=== PATIENT | female | born 1995 | race African-American/Black ===

== ENCOUNTER 2017-03-09 17:33 | Emergency (ER) | payer MEDICAID, OTHER ==
[~2017-03-09] VITALS: Ht 162.6 cm; Wt 127.0 kg
[~2017-03-09 17:33] MED LIST: Z.0.NO CURRENT MEDS
[2017-03-09 17:40] VITALS: BP 152/95; PULSE 103; RESP 16; TEMP 98.2; O2SAT 97
--- NOTE | 2017-03-09 17:57 | PD ---
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 She had a period on February 16. She said it only lasted 2 days which is fairly light for her. Since then she's been having some lower abdominal cramps. She has started to urinate a lot. She has some hot flashes at times. She says she has never been . She is not aware of fever or chills. PFS Past Medical History Immunizations Current: Yes ?: Unknown LMP: IRREG Social History Alcohol Use: No Tobacco Use: No Substance Use: No Allergies-Medications (Allergen,Severity, Reaction): Coded Allergies: No Known Allergies (Verified , 03/09/17) Reported Meds & Prescriptions Reported Meds & Active Scripts Active No Active Prescriptions or Reported Medications Review of Systems General / Constitutional: No: Fever, Chills Eyes: No: Diploplia HENT: Positive: Headaches, No: Vertigo Cardiovascular: No: Chest Pain or Discomfort, Palpitations Respiratory: No: Cough Gastrointestinal: No: Nausea Genitourinary: Positive: Dysuria, Pelvic Pain Musculoskeletal: No: Myalgias, Arthralgias Skin: No Rash Neurologic: No: Weakness Hematologic/Lymphatic: No: Easy Bruising Physical Exam Narrative GENERAL: Well-developed female SKIN: Focused skin assessment warm/dry. HEAD: Atraumatic. Normocephalic. EYES: Pupils equal and round. No scleral icterus. No injection or drainage. ENT: No nasal bleeding or discharge. Mucous membranes pink and moist. NECK: Trachea midline. No JVD. CARDIOVASCULAR: Regular rate and rhythm. No murmur appreciated. RESPIRATORY: No accessory muscle use. Clear to auscultation. Breath sounds equal bilaterally. Pelvic: There is a moderate amount of white discharge. There is pain with movement of the cervix. No masses are felt GASTROINTESTINAL: Abdomen soft, non-tender, nondistended. Hepatic and splenic margins not palpable. MUSCULOSKELETAL: No obvious deformities. No clubbing. No cyanosis. No edema. NEUROLOGICAL: Awake and alert. No obvious cranial nerve deficits. Motor grossly within normal limits. Normal speech. PSYCHIATRIC: Appropriate mood and affect; insight and judgment normal. Data Data Last Documented VS Vital Signs Date Time Temp Pulse Resp B/P Pulse Ox O2 Delivery O2 Flow Rate FiO2 03/09/17 17:40 98.2 103 16 152/95 97 Orders Urinalysis - C+S If Indicated (03/09/17 17:46) Ed Urine Pregnancytest Poc (03/09/17 17:46) Gc And Chlamydia Pcr (03/09/17 18:05) Wet Prep Profile (03/09/17 18:05) Ceftriaxone Inj (Rocephin Inj) (03/09/17 18:15) Lidocaine 1% Inj (50 Ml) (Xylocaine 1% I (03/09/17 18:15) Labs Laboratory Tests Test 03/09/17 03/09/17 17:50 18:10 Urine Collection Type CLEAN CATCH Urine Color YELLOW Urine Turbidity CLEAR Urine pH 6.5 Urine Specific [place] 1.022 Urine Protein NEG mg/dL Urine Glucose (UA) NEG mg/dL Urine Ketones NEG mg/dL Urine Occult Blood NEG Urine Nitrite NEG Urine Bilirubin NEG Urine Leukocyte Esterase NEG Urine WBC 0-2 /hpf Urine Squamous Epithelial 0-5 /hpf Cells Microscopic Urinalysis Comment CULT NOT INDICATED Clue Cells (Wet Prep) NONE SEEN Vaginal Trichomonas (Wet Prep) NONE SEEN Vaginal Yeast (Wet Prep) NONE SEEN MDM Medical Decision Making Medical Screen Exam Complete: Yes Emergency Medical Condition: Yes Medical Record Reviewed: Yes Differential Diagnosis Differential includes vaginitis, cervicitis, Narrative Course test is negative. Wet prep is negative patient will be treated for cervicitis with Rocephin and doxycycline Diagnosis Primary Impression: Cervicitis Scripts Doxycycline Hyclate 100 Mg [id number] Mg PO BID #[id number] CAP Prov:Billy Hermosillo MD 03/09/17 Disposition: 01 DISCHARGE HOME Condition: Stable Billy Hermosillo MD Mar 09, 2017 17:57
[2017-03-09 18:04] LABS: BLOOD, URINE NEG (NEG); GLUCOSE,URINE NEG (NEG); KETONE, URINE NEG (NEG); NITRITE,URINE NEG (NEG); PH, URINE 6.5 (5.0-8.5)
[2017-03-09 18:09] LABS: COMMENT (UR) CULT NOT INDICATED; CULTURE IF INDICATED CULT NOT INDICATED; METHOD OF COLLECTION CLEAN CATCH; SQUAMOUS EPITHELIAL CELL URINE 0-5 /hpf (0-5); URINE COLOR YELLOW (YELLW/STRAW); WBC, URINE 0-2 /hpf (0-5)
[2017-03-09] MEDS ORDERED: LIDOCAINE HCL 1% 50 ML VIAL IM ONE (18:15)
[2017-03-09] MEDS ORDERED: cefTRIAXone 250 MG VIAL IM ONE (18:15)
[2017-03-09] MEDS ORDERED: DOXY100C PO (18:33)
[2017-03-09 22:21] LABS: CHLAMYDIA PCR NOT DETECTED (NOT DETECT); NEISSERIA PCR NOT DETECTED (NOT DETECT)
== END 2017-03-09 19:15 | disposition home or self-care (01) ==
LOC: PHED 17:33
DX: N72 Inflammatory disease of cervix uteri (principal); R10.2 Pelvic and perineal pain
CPT/HCPCS: 81001; 84703; 87210; 87491; 87591; 96372; 99284; J0696